=== PATIENT | female | born 1940 | race Caucasian/White ===

== ENCOUNTER 2024-07-11 13:05 | Observation (INO) | payer MEDICARE, SELFPAY ==
[2024-07-11] VITALS (15 sets, daily range): BP systolic 97–168; BP diastolic 44–105; PULSE 66–80; BMI 19.3
[2024-07-11 05:10] LABS: % Basophils 0.2 % (0-2); % Eosinophils 1.9 % (0-6); % Immature Granulocytes 0.3 % (0-0.5); % Lymphocytes 12.6 % (20.5-51.1); % Monocytes 7.4 % (1.7-9.3); % Neutrophils 77.6 % (42.2-75.2); Absolute Eosinophils 0.3 10^3/uL (0-0.7); Absolute Lymphocytes 1.8 10^3/uL (1.2-3.4); Absolute Neutrophils 10.9 10^3/uL (1.4-6.5); Hematocrit 36.6 % (37.0-47.0); Hemoglobin 12.1 g/dL (12.0-16.0); Mean Corp Hgb Conc. 33.1 g/dL (33.0-37.0); Mean Corpuscular Hgb 30.4 pg (27.0-31.0); Mean Platelet Volume 11.2 fL (7.4-10.4); Nucleated Red Blood Cells % 0 %; Platelet Count 245 10^3/uL (130-400); Red Blood Cell Count 3.98 10^6/uL (4.20-5.40); Red Cell Dist. Width 13.5 % (11.5-14.5)
[2024-07-11 05:43] LABS: ALT (SGPT) 18 U/L (0-35); AST (SGOT) 27 U/L (14-36); Albumin 3.8 g/dl (3.5-5.0); Alkaline Phosphatase 92 U/L (38-126); Blood Urea Nitrogen 27 mg/dl (7-17); Calcium 9.6 mg/dl (8.4-10.2); Carbon Dioxide 23 mmol/L (22-30); Chloride 108 mmol/L (98-107); Estimated Creatinine Clearance 31 ml/min; Glucose 107 mg/dl (70-99); Potassium 4.5 mmol/L (3.5-5.1); Sodium 141 mmol/L (135-145); Total Bilirubin 0.6 mg/dl (0.2-1.3); Total Protein 6.6 g/dl (6.3-8.2); eGFR 44.91
--- NOTE | 2024-07-11 06:19 | ED.GENMED ---
History of Present Illness
General
Chief Complaint: Fainting/Passed Out
Source: patient and family
Time Seen by Provider: 07/11/24 06:04
History of Present Illness
History of Present Illness:
84-year-old female with past medical history of mild Alzheimer's dementia, atrial fibrillation, GERD, [id number] diabetes presenting to the emergency department with son who contacted EMS after patient had 2 syncopal episodes reportedly,
1 witnessed, 1 unwitnessed between midnight and 4 AM, the last episode patient son reports that the patient was calling out to him and was sliding down a door frame, son notes that prior to him getting to her she did fall to the ground, believes
patient did strike her head and then had an episode where she seemed to clench up and briefly lose consciousness, questionably confused afterwards that lasted for only a minute or so and then was back to her usual state of health. Patient son notes
that this is the fifth time she has been to the hospital for similar type event with no specific etiology found. Son reports that patient was just discharged from [facility] yesterday but also has a recent admission for a prolonged stay and
recently at a rehab facility as well. Son reports the first time that this type of event happened patient was having vomiting and diarrhea but states patient normally has not spontaneously urinated nor had any tongue biting. There has not been any
fevers or other infectious symptoms noted. Discharge summary that son provided noted that patient was recently admitted for hypertensive episode and it appears patient had CTA of the head and neck as well as MRI performed but these results were not
known.
Past History
Past History
ED Past Medical History: Arrthythmia, GERD, NIDDM and Other (Alzheimer's dementia)
ED Past Surgical History: Appendectomy
Social History
Tobacco: Non-smoker
Alcohol: None
Drug: None
Personal:
Living: with family
Review of Systems
Review of Systems
All Other Systems: ROS reviewed and negative except as documented in HPI and ROS
Phy Exam
Physical Exam
Physical Exam:
GENERAL: Alert , in no apparent distress, appears older than stated age
HEAD: Normocephalic atraumatic
EYE: pupils equal and reactive, 3 mm bilateral
NECK: Supple
ENT: o/p clr, mmm.
CARDIAC: Regular rate and rhythm, systolic murmur down the left sternal border.
LUNGS: Clear breath sounds bilaterally, no acute respiratory distress, no wheezes/rales/rhonchi
ABDOMEN: Soft, without focal tenderness, no r/g, no cvat
NEUROLOGICAL: Alert and oriented, no focal neuro deficits, answers questions appropriately
SKIN: Warm and dry, skin intact.
MUSCULOSKELETAL: No edema, well perfused.
PSYCH: Normal and appropriate interaction.
Scores
Heart Failure Risk
Heart Failure Risk Score: Not Applicable
Heart Score for Chest Pain Patients
STEMI patient?: Not applicable
Withdrawal Assessment of Alcohol
Withdrawal Assessment Completed?: Not applicable
Course
Orders/Labs/Results
Orders:
Orders
07/11/24 04:53
EKG [Electrocardiogram (*1)] Urgent
Reason for Study: Syncope
EKG- Treatment ONCE
07/11/24 04:54
Complete Blood Count/With Diff Urgent
Comprehensive Metabolic Panel Urgent
Creatine Phosphokinase Urgent
Comment: ADD ON
07/11/24 05:[address] [CT Head W/o Iv Contrast] Urgent
Comment:
Reason For Exam: fall/syncope
07/11/24 06:08
Orthostatic VS- Treatment ONCE
0.9% Sodium Chloride 1000 ml [Nss] 1,000 ml IV BOLUS
07/11/24 06:18
Add On- LAB Urgent
Tests Added?: cpk
07/11/24 08:16
Straight Cath As Directed
Frequency: One time now
07/11/24 08:17
Urinalysis Reflex To Culture Urgent
Date Specimen was Collected: 07/11/24
Time Specimen was Collected: 08:15
07/11/24 12:16
Old Records Request [Obtain Records] As Directed
Dates of Information to be Released: last
Type of Information Requested: Discharge Summary
Lab Results
Radiology Results
Consults
Comment: last admission at [facility]
07/11/24 12:18
EEG Routine Routine
Reason for Exam: syncope
Orthostatic Vital Signs As Directed
Orthostatic VS Frequency: BID
Orthostatic Vital Signs As Directed
Orthostatic VS Frequency: Now
CR Chest - 2 Views Urgent
Comment:
Reason For Exam: leucocytosis
07/11/24 12:19
Admit/Transfer Patient As Directed
Co-Sign Provider:
Level of Care: Observation services
Assign to:: Telemetry
Physician / Group: Hospitalist
Diagnosis: Syncope
Reason for Telemetry: Other
Other Reason for Telemetry: Syncope
Date to Stop Telemetry: 07/13/24
Time to Stop Telemetry: 11:00
NEUROLOGY CONSULT Routine
Consulting Provider: Shanda Larry
Was physician already notified: Yes
Reason for consult: syncope
PRN Pain Medication Management As Directed
May give lesser potent ordered pain med per pt: Yes
preference::
Protocol:: Medication orders for pain may be administered in a
manner that supports deferring to patient preference
when the pt is:
- Requesting an ordered lesser potent pain medication.
Least to most potent pain medications are defined
as: acetaminophen < NSAID < tramadol < opioids
(morphine, oxycodone, hydromorphone).
- Requesting a lesser dose of the same medication IF
ORDERED.
- Requesting a less intrusive route of administration
if both routes are prescribed by the provider (PO <
IV).
07/11/24 12:30
Troponin I Q6H
07/11/24 18:30
Troponin I Q6H
07/13/24 11:00
DC Protocol for Telemetry ONCE
Abnormal Lab Results
07/11/24
04:54
WBC 14.0 H 10^3/uL
(4.8-10.8)
RBC 3.98 L 10^6/uL
(4.20-5.40)
Hct 36.6 L %
(37.0-47.0)
MPV 11.2 H fL
(7.4-10.4)
Absolute Neuts (auto) 10.9 H 10^3/uL
(1.4-6.5)
Absolute Monos (auto) 1.0 H 10^3/uL
(0.1-0.6)
Neutrophils % 77.6 H %
(42.2-75.2)
Lymphocytes % 12.6 L %
(20.5-51.1)
Chloride 108 H mmol/L
(98-107)
BUN 27 H mg/dl
(7-17)
Creatinine 1.2 H mg/dL
(0.6-1.0)
Glucose 107 H mg/dl
(70-99)
07/11/24 04:54
07/11/24 04:54
Vital Signs
Initial and Last Documented VS:
Initial Vital Signs
Temp Pulse Resp BP Pulse Ox
98.0 F 55 16 129/68 97
07/11/24 04:41 07/11/24 04:41 07/11/24 04:41 07/11/24 04:41 07/11/24 04:41
Last Documented Vital Signs
Temp Pulse Resp BP Pulse Ox
98.0 F 70 20 120/49 97
07/11/24 04:41 07/11/24 11:00 07/11/24 11:00 07/11/24 11:00 07/11/24 09:00
MDM/Problems Addressed
Differential Diagnosis Includes:
Vagal event, syncope, orthostasis, seizure, valvular dysfunction, cardiac arrhythmia/dysrhythmia, electrolyte derangement, urinary tract
MDM/Problems Addressed:
84-year-old female presenting to the ER for evaluation after reportedly having syncopal event versus possible seizure 2 times this morning, multiple similar episodes over the last few weeks that have landed patient in the hospital for further workup
but son reports no specific etiologies found. He does note patient had neuroimaging performed but is unaware of these results. Patient hemodynamically stable and in no acute distress, she is afebrile. Labs initiated on arrival do show a
leukocytosis of 14,000 as well as a mild JOSE R however no labs to compare to. Will check labs from [place] and attempt to obtain the imaging studies. Given the reported unwitnessed fall and patient being anticoagulated will reobtain CT of the head
here. Will treat with 1 L of fluids as well as check orthostatic vital signs. Disposition pending.
Chronic conditions affecting care: Neurological disorder (dementia)
*Radiology
Radiology exam reviewed: radiology read reviewed
*Pulse Oximetry
Patient hypoxic: no
*Critical Care Note
Total Time (30-74mins, 75-104mins- exclusive of procedures): Not Applicable
Data Reviewed
Review of Other/Old Records Reveals: Labs, Records, Radiology Studies and Discharge Summary
Patient Management
Discussion with other providers: Hospitalist
Escalation/DeEscalation of care consider admission/obs:
Patient's workup is largely unremarkable other than a leukocytosis and mild JOSE R. CT of the head is unremarkable. She has remained stable and in no acute distress. Given age and presenting symptoms will admit for further evaluation, question need
for EEG. Hospitalist team aware and accepts.
ED Attending Note
-
Portions of this chart may have been created with voice recognition software.� Occasional wrong word or��sound alike� substitutions may have occurred due to the inherent limitations of voice recognition software.
Discharge Plan
Departure
Patient Disposition: Admit
Date of Disposition: 07/11/24
Time of Disposition: 10:04
Presentation/result/management discussed w/ accepting MD/DO: Hospitalist
Discharge Problem:
Syncope, Leukocytosis
Prescriptions:
No Action
atorvastatin 40 mg Tablet
40 mg PO HS
cyanocobalamin (vitamin B-12) 1,000 mcg Tablet
1,000 mcg PO DAILY
benzonatate 100 mg Capsule
100 mg PO TIDPRN PRN (Reason: cough )
lisinopril 10 mg Tablet
10 mg PO DAILY
omeprazole 20 mg Capsule,Delayed Release(Dr/Ec)
20 mg PO DAILY
aspirin 81 mg Tablet,Chewable
81 mg PO DAILY
midodrine 2.5 mg Tablet
2.5 mg PO TIDPRN PRN (Reason: SBP<100)
cholecalciferol (vitamin D3) 25 mcg (1,000 unit) Capsule
25 mcg PO DAILY
metoprolol tartrate 25 mg Tablet
12.5 mg PO BID
diclofenac sodium [Voltaren] 1 % Gel
0 g TOPICAL QIDPRN PRN (Reason: joint pain )
magnesium oxide 400 mg magnesium Tablet
400 mg PO BID
simvastatin [Zocor] 20 mg Tablet
40 mg PO HS
Referrals:
Cliff Jackson DO [Family Provider] -
Interventions
Interventions:
*Risk Screen - Suicide Last Done: 07/11/24 04:41
*General Assessment Last Done: 07/11/24 04:41
*Neglect/Abuse Screening Last Done: 07/11/24 04:41
*ED- Fall Risk Assessment Last Done: 07/11/24 04:41
*ED COVID-19 Vaccine History Last Done: 07/11/24 05:24
ED- Cardiac Assessment Last Done: 07/11/24 05:25
ED- Neurological Assessment Last Done: 07/11/24 05:25
Discharge Date and Time
Print Language: BOTSWANAN
[2024-07-11] MEDS: NSS 1000 IV (06:38)
[2024-07-11 06:56] LABS: Creatine Phosphokinase 32 U/L (30-135)
[2024-07-11 08:30] LABS: Urine Albumin Negative (Neg - Trace); Urine Bilirubin Negative (Negative); Urine Character Clear (Clear); Urine Color Yellow; Urine Glucose Negative (Negative); Urine Ketone Negative (Negative); Urine Leukocyte Negative (Negative); Urine Nitrite Negative (Negative); Urine Occult Blood Negative (Negative); Urine Specific Gravity 1.005 (<1.030); Urine Urobilinogen Negative (Neg - 1+)
--- NOTE | 2024-07-11 10:43 | PHANOTE ---
med rec note- called patient son phone on file, patient does not know where she is or what Im trying to ask her about medication, patient son stated that she was in [facility] yesterday and discharge 07/10/24, son left paperwork with
patient, explain that patient on Zocor and Lipitor he said that the hospital told him to give her both and she took them last night on 07/10/24
--- NOTE | 2024-07-11 12:11 | HPS.HSE ---
Family Physician
-
Family Physician: Cliff Jackson
Chief Complaint
-
Passed out
History of Present Illness
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 Second 1 reported by the son patient was calling out to him and slid down the door frame patient did fall to the ground and had clenched up and briefly lost
consciousness she was confused for a minute afterwards
History per discussion with the ER. Patient is a very poor historian and also likely has dementia.
Report this is the fifth time similar event happened. Patient was at [facility] recently. First time it happened when she was having vomiting and diarrhea.
Medical History
Past Medical History
Past Medical History: Reports Other
Additional Past Medical History:
Dementia,, diabetes A-fib, GERD, diabetes, syncopes
Past Surgical History: Reports Appendectomy
Social History
Tobacco: Former Smoker
Alcohol: None
Drug: None
Living: With Family
Family History
Family History: Not pertinent
Allergies / Home Medications
Allergies reflects when Allergies were last updated in [employer].
Home Medications with original date entered in [employer]
Allergy/Medication List:
Allergies
Allergy/AdvReac Type Severity Reaction Status Date / Time
No Known Allergies Allergy Verified 07/11/24 04:54
Home Medications
aspirin 81 mg chewable tablet 81 mg PO DAILY 07/11/24
atorvastatin 40 mg tablet 40 mg PO HS 07/11/24
benzonatate 100 mg capsule 100 mg PO TIDPRN PRN cough 07/11/24
cholecalciferol (vitamin D3) 25 mcg (1,000 unit) capsule 25 mcg PO DAILY 07/11/24
cyanocobalamin (vitamin B-12) 1,000 mcg tablet 1,000 mcg PO DAILY 07/11/24
diclofenac sodium 1 % topical gel 0 g topical QIDPRN PRN joint pain 07/11/24
lisinopril 10 mg tablet 10 mg PO DAILY 07/11/24
magnesium oxide 400 mg PO BID 07/11/24
metoprolol tartrate 25 mg tablet 12.5 mg PO BID 07/11/24
midodrine 2.5 mg tablet 2.5 mg PO TIDPRN PRN SBP<100 07/11/24
omeprazole 20 mg capsule,delayed release 20 mg PO DAILY 07/11/24
simvastatin 20 mg tablet (Zocor) 40 mg PO HS 07/11/24
Review of Systems
-
History Source: Patient
Respiratory: Denies Trouble Breathing
Cardiac: Denies Chest Pain
Abdomen/GI: Denies Abdominal Pain
Neurological: Reports Dizzy; Denies Headache
Physical Exam
Vital Signs
Vital Signs
Temp Pulse Resp BP Pulse Ox
98.0 F 70 20 120/49 97
07/11/24 04:41 07/11/24 11:00 07/11/24 11:00 07/11/24 11:00 07/11/24 09:00
Physical Exam
General: Comfortable
Respiratory: Clear
Cardiac: S1/S2, Regular Rhythm and Murmur (aa)
GI: Soft and Normal Bowel Sounds
Neuro: Awake, Alert and No Motor Deficits; No Oriented
Psych: Apparent Dementia
Laboratory Results
-
07/11/24 04:54
07/11/24 04:54
Laboratory Results
Total Bilirubin 0.6 mg/dl (0.2-1.3) 07/11/24 04:54
AST 27 U/L (14-36) 07/11/24 04:54
ALT 18 U/L (0-35) 07/11/24 04:54
Alkaline Phosphatase 92 U/L (38-126) 07/11/24 04:54
Data Reviewed
-
CT Scan: Report Reviewed by me (Head CT-no acute abnormalities. Findings compatible with diffuse cortical atrophy with mild nonspecific white matter changes.)
Medical Tests (Nuc Med, Echo, EKG etc): Image Personally Visualized and interpreted (EKG-sinus rhythm anteroseptal infarct age undetermined)
Impression/Plan
-
IMPRESSION/PLAN:
# Syncope witnessed and 1 unwitnessed
Multiple syncopal events in the past
Workup at [facility] and was discharged yesterday. Looks like was admitted on 07/07/2024 and discharged on 07/10/2024 blood pressure was 222/88 on admission associated with headache and lethargy
Neurology evaluation was done no CVA
EEG ordered
Orthostatic vital signs
Unclear if patient has orthostatic hypotension patient also has midodrine in her med list
Check Trop
Also moderate to severe on ECHo- Will consult Cards if this could explain the Syncopes
# Leukocytosis-likely stress reaction. Urinalysis unremarkable. Chest x-ray to be ordered
# Acute kidney injury. Creatinine on 07/08/2024 was 0.80- 500 ml IV fluids
# Recent stroke-seen by Dr. Lorena Zepeda neurology at [facility]
Patient was admitted with left-sided weakness at that time to [facility] and also right facial droop?
07/08/2024 -MRI of the brain mild to moderate atrophy with at least mild small vessel disease. There is a probable small old left thalamic lacunar infarct. There is suggestion of tiny recent infarcts involving the right thalamus and mckenzie
radiator. No convincing left-sided acute infarct to explain right facial droop. Questionable diffusion abnormality in the midbrain to the right of the middle.
CT angiogram of head and neck atherosclerotic disease of the right common carotid and internal carotid arteries without significant stenosis. Atherosclerotic disease of the left common carotid without significant stenosis less than 50%. Bilateral
ELIEZER, MCA, TAPER/FINISHER normal in appearance. Age-related atrophy.
Neurology at [facility] did not feel the changes were secondary to stroke.Recommended to continue aspirin and statin
# Hypertension-on metoprolol, lisinopril as outpatient
# Hyperlipidemia-continue statin
# Aortic stenosis-follows up with administrative services officer of [place]
Echo normal LV size. Normal RV size. Severe aortic stenosis transaortic valve gradient 34 mmHg LVOT 1.8 cm. No AI.
Patient has an appointment with cardiology at [place] on 09/11/2024
# Type 2 diabetes-diet controlled. Not on any medicines. Hemoglobin A1c 5.7 in 07/08/2024
# Paroxysmal atrial fibrillation-continue metoprolol. Not on anticoagulation secondary to falls
# Vitamin B12 deficiency
# GERD-continue PPI
# DVT Prophylaxis- Lovenox
# CODE Status-full code for now
D/W ER attending
I was not able to reach the patient's son left a message for call back..
Op Chart records from [facility] ayan.
PCP Dr. Cliff Jackson
time spent over 75 min
--- NOTE | 2024-07-11 15:06 | CON.CAR ---
Addendum entered and electronically signed by Alex Sy MD 07/11/24 17:09:
I saw and examined the patient.
The Systems Technologist's note was reviewed and I agree with the note.
Comment: Briefly, 84-year-old woman past medical history of moderate to severe aortic stenosis, paroxysmal atrial fibrillation not chronically anticoagulated and dementia who has had multiple syncopal episodes over the last several months and
presents for evaluation.
Patient largely obtained from her son Tommy who is at bedside
It seems that she has had multiple syncopal episodes over the last several months and has been hospitalized at [facility] each time
Difficult to obtain history of prodromal symptoms as the patient tells me she does not recall any of these episodes
By his report her blood pressure has been quite labile and her antihypertensives have been changed over the last several months without much improvement in her symptoms
Given her aortic stenosis would recommend stopping beta-lida for now
If she has recurrence of atrial fibrillation would consider amiodarone to maintain sinus rhythm
Check transthoracic echocardiogram in a.m. to evaluate aortic valve gradients - it is very possible that aortic stenosis is contributing to her symptoms
He gives a history of staring spells around the time of these episodes
Appreciate neurology input regarding possible seizure activity
Documented history of atrial fibrillation but not on oral anticoagulation likely due to frequent falls
I reviewed with him that she is at both elevated risk of stroke as well as bleeding on anticoagulation
Rest per Amy Eaton
Original Note:
Consultation
Consultation Request
Date/Time Consultation Requested: 07/11/24
Date/Time Consultation Performed: 07/11/24
Requesting Provider: Dr. Santo
Performing Provider: Dr. Sy
Reason for Consultation: Syncope
Medical History
-
History of Present Illness:
Patient came to [facility] ER early this morning with recurrent syncope at home. Patient lives with her son, but was living independently in [place] until 07/2023 when the patient's PCP in [place] called her son and told him that she was too demented to be
living on her own and recommended that she move closer to family. The patient has been living with her son since 07/2023. Patient's son gives the bulk of the HPI and reports that the patient has been hospitalized at [facility] 4 times since
03/2024 for recurrent syncope. The initial episode of syncope in 03/2024 happened in the setting of nausea, vomiting and diarrhea. Patient was admitted there again this past Monday to yesterday with syncope and had an echo as outlined above.
Patient's son reports that patient was found to have a new area of stroke in the left hemisphere this is in addition to a previously identified right hemispheric stroke. Patient has known paroxysmal atrial fibrillation but is not chronically on OAC
due to history of falls. Patient's son says that otherwise they were not sure why the patient kept passing out. Patient is back to living with her son and she woke up in the night to go to the bathroom and was able to go back to bed without issue,
but got up again 2 hours later to go to the bathroom and called for help and said she fell like she was going to pass out and was leaned up against a door jam and slowly falling to the ground. She then had her typical episode of eyes open with a
blank stare, whole body clenching without evidence of seizure activity and unresponsiveness. Patient was on the ground and was trying to sit up and had another episode of syncope. No recurrence of syncope since admission. Patient was seen by CCP
[facility] during her admission, with the patient's son arranged for outpatient follow-up with our office.
PMH:
h/o syncope, 4 admissions to [facility] since 03/2024
Moderate to sev , mean gradient 34 mmHg by echo 07/08/24
Paroxysmal Afib
Not chronically anticoagulated due to h/o falls
DM 2
HTN
h/o CVA
Past Medical History
Past Medical History: Other (in HPI)
Past Surgical History: Appendectomy
Social History
Tobacco: Former Smoker
Alcohol: None
Drug: None
Personal:
Living: With Family
Family History
Family History: Reviewed & Not Pertinent
Allergies / Home Medications
Allergy/AdvReac Type Severity Reaction Status Date / Time
No Known Allergies Allergy Verified 07/11/24 04:54
�Medication �Instructions �Recorded �Confirmed �Type
aspirin 81 mg chewable tablet 81 mg PO DAILY 07/11/24 07/11/24 History
atorvastatin 40 mg tablet 40 mg PO HS 07/11/24 07/11/24 History
benzonatate 100 mg capsule 100 mg PO TIDPRN PRN cough 07/11/24 07/11/24 History
cholecalciferol (vitamin D3) 25 25 mcg PO DAILY 07/11/24 07/11/24 History
mcg (1,000 unit) capsule
cyanocobalamin (vitamin B-12) 1,000 mcg PO DAILY 07/11/24 07/11/24 History
1,000 mcg tablet
diclofenac sodium 1 % topical gel 0 g topical QIDPRN PRN joint pain 07/11/24 07/11/24 History
lisinopril 10 mg tablet 10 mg PO DAILY 07/11/24 07/11/24 History
magnesium oxide 400 mg PO BID 07/11/24 07/11/24 History
metoprolol tartrate 25 mg tablet 12.5 mg PO BID 07/11/24 07/11/24 History
midodrine 2.5 mg tablet 2.5 mg PO TIDPRN PRN SBP<100 07/11/24 07/11/24 History
omeprazole 20 mg capsule,delayed 20 mg PO DAILY 07/11/24 07/11/24 History
release
simvastatin 20 mg tablet (Zocor) 40 mg PO HS 07/11/24 07/11/24 History
Review of Systems
-
History Source: Patient and Family (son, [place])
All other systems: Negative unless noted
Physical Exam
Vital Signs
Temp Pulse Resp BP Pulse Ox
98.0 F 70 20 120/49 97
07/11/24 04:41 07/11/24 11:00 07/11/24 11:00 07/11/24 11:00 07/11/24 09:00
GEN: NAD. Awake and alert
HEENT: EOMI, MMM
LUNGS: RA. Clear anterolaterally without wheeze
CV: SR on tele. Reg, S1/S2, 2/6 syst LSB
ABD: soft, BS+, NT, ND
EXT: No clubbing, cyanosis, lesions or edema B/L
NEURO: Gross non-focal
SKIN: Warm, dry and pink. No rash
Lab Results
07/11/24 04:54
07/11/24 04:54
Impression / Plan
-
PCP: Dr. Cliff Jackson
Card: [facility], but upcoming appt with Dr. Rossi
Impression:
Admitted with recurrent syncope 07/11/24
h/o syncope, 4 admissions to [facility] since 03/2024
Moderate to sev , mean gradient 34 mmHg by echo 07/08/24
Paroxysmal Afib
Not chronically anticoagulated due to h/o falls
DM 2
HTN
JOSE R
h/o CVA
Echo 07/08/24: [facility] study, f/u study, normal LVEF, normal RV size, mod to sev mean gradient 34 mmHg
Plan:
-Patient came to [facility] ER early this morning with recurrent syncope at home. Patient lives with her son, but was living independently in [place] until 07/2023 when the patient's PCP in [place] called her son and told him that she was too demented to
be living on her own and recommended that she move closer to family. The patient has been living with her son since 07/2023. Patient's son gives the bulk of the HPI and reports that the patient has been hospitalized at [facility] 4 times
since 03/2024 for recurrent syncope. The initial episode of syncope in 03/2024 happened in the setting of nausea, vomiting and diarrhea. Patient was admitted there again this past Monday to yesterday with syncope and had an echo as outlined above.
Patient's son reports that patient was found to have a new area of stroke in the left hemisphere this is in addition to a previously identified right hemispheric stroke. Patient has known paroxysmal atrial fibrillation but is not chronically on OAC
due to history of falls. Patient's son says that otherwise they were not sure why the patient kept passing out. Patient is back to living with her son and she woke up in the night to go to the bathroom and was able to go back to bed without issue,
but got up again 2 hours later to go to the bathroom and called for help and said she fell like she was going to pass out and was leaned up against a door jam and slowly falling to the ground. She then had her typical episode of eyes open with a
blank stare, whole body clenching without evidence of seizure activity and unresponsiveness. Patient was on the ground and was trying to sit up and had another episode of syncope. No recurrence of syncope since admission. Patient was seen by [facility] during her admission, with the patient's son arranged for outpatient follow-up with our office.
-ECG reviewed by me is SR and QTc is 422 ms
-Orthostatic vital signs performed in the ER this morning include: Supine BP 147/52, sitting BP 131/44 and standing BP 97/52. No symptoms recorded with orthostatic vital signs.
-Patient is supposed to take midodrine 2.5 mg TID for SBP less than 100 at home, but she is not capable of checking BP on her own so she has not been taking any doses of midodrine.
-Patient has been taking her usual doses of Lopressor 12.5 mg BID and lisinopril 10 mg daily. It sounds like lisinopril dose was changed at that last discharge which was yesterday, but I do not know if they went up on the dose or down on the dose,
the notes are not clear.
-We will try stopping Lopressor for now and follow on tele.
-Check echo to reassess AV gradients and EF. Sounds like at least moderate to severe .
-Not sure that patient is a TAVR candidate based on cognition, but did review TAVR work-up with son and risks involved. Also reviewed that at any point in the TAVR work that the patient may be deemed to not be a candidate.
-Patient also with history of paroxysmal atrial fibrillation, but has been in sinus rhythm. Will follow on telemetry and look for any rate or rhythm changes that may explain her symptoms.
-Patient is not chronically on OAC due to falls.
-Neurology consulted and sounds like neuro at [facility] identified bihemispheric strokes.
-Also of note the patient was discharged to home from [facility] on both simvastatin and atorvastatin as active medications
-Cre was 1.2 in the ER today on my review of labs. The [facility] records reviewed by me as well and Cre was 1.0 on Monday. Lisinopril is on hold
[2024-07-11] MEDS: NSS 500 IV (15:40)
[2024-07-11] MEDS: TYLENOL PO ×3 (15:41→23:22)
--- NOTE | 2024-07-11 16:58 | EEGC.RPT ---
Continuous EEG Report
Recording
Start Date of Data Reviewed: 07/11/24
End Date of Data Reviewed: 07/11/24
Done with Video Recording: Yes
Report
TECHNICAL REMARKS:��This is a technically satisfactory eighteen channel record employing 21 disc electrodes applied according to a measured international 10-20 electrode placement system.��There were no significant technical difficulties.��The study
was done on a [employer] System.
CLINICAL HISTORY:�This is an 81-year-old woman with syncope.��This study was requested to look for epileptiform activity.
MEDICATIONS: No AED
STUDY DURATION: 31 min, 11 sec
�
REPORT: �At the onset of the EEG, the patient is awake. The background activity consists of 8.5-9.o Hz, persistent, posteriorly dominant, moderate in amplitude, symmetric, and rhythmic activity that is reactive to eye-opening with admixed 10-15
microvolts delta activity.� Anteriorly, it consists of a mixture of symmetric and rhythmic 5-10 microvolts, 15-20 beta activity, as well as central 6-7 Hz 10-20 microvolts theta activity. Intermittent generalized 5-6 Hz 10-20 microvolts activity
lasting for 1-1.5 seconds during wakefulness is present. Stepwise intermittent photic stimulation (1-31 Hz) did not induce any additional abnormalities. Hyperventilation was not performed. drowsiness is characterized by low amplitude mixed
frequency activity, decreased eye blinking, and muscle artifact.
IMPRESSION: �This is an abnormal awake and drowsy EEG due to a mild generalized slowing. This finding indicates a mild encephalopathy that is not specific to etiology.� No epileptiform activity was seen.� If the clinical picture warrants, a
sleep-deprived awake and sleep record may be helpful.
--- NOTE | 2024-07-11 17:03 | CON.NEURO ---
Consultation
Order
Date of Consultation: 07/11/24
Requesting Provider: Sylvie Sanot MD
Reason for Consult: Syncope
Neurology Consultation Note.
HPI: This is an 84-year-old woman who presented to [facility] on with recurrent spells.
Mobile reports no complaints. She is unable to provide a history. According to EMR she was witnessed by her son to be leaning up against a door and slowly falling to the ground on the day of presentation. She had blank stare and whole body
'clenching'. No reports of abnormal movements.
Ms. Weeks reportedly has history of dementia as well as stroke. She is unable to recall what hospital she had her stroke care at.
ER VS: 129/68-97/52, 55, afebrile.
EKG:NSR. QTc Int : 422 ms
PDMP:none
Labs: Glucose�107, normal sodium, creatinine�1.2, WBCs�14, normal CK, normal urinalysis
CT head wo contrast-diffuse cortical atrophy
Routine EEG ()�mild generalized slowing
PMH: Orthostatic hypotension on midodrine, dementia, PA A-Fib on aspirin due to postural dysfunction, vitamin D deficiency, moderate to sev , vitamin D deficiency, macular degeneration
PSH: appendectomy, bilateral cataract surgery
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
FH: No family history of neurodegenerative disease
All:NKDA
ROS: Constitutional: Negative. Negative for chills, fever and unexpected weight change.
HENT: Negative for ear pain, hearing loss, tinnitus and trouble swallowing.
Eyes: Positive for visual impairment
Respiratory: Negative for cough, choking and shortness of breath.
Cardiovascular: Negative for chest pain, palpitations and leg swelling.
Gastrointestinal: Negative for abdominal pain and vomiting.
Endocrine: Negative. Negative for cold intolerance.
Genitourinary: Negative for dysuria, flank pain and urgency.
Musculoskeletal: Negative for back pain, gait problem, neck pain and neck stiffness.
Skin: Negative for rash.
Allergic/Immunologic: Negative. Negative for immunocompromised state.
Neurological: Positive for cognitive deficits
General: Well developed. In no acute distress.
Cardio: Regular rate and rhythm Extremities are without cyanosis or edema.
Neuro:
Mental Status: Alert, oriented to self, year. Did not know the month, date. Mild expressive aphasia. Follows simple requests consistently.
Cranial Nerves: Pupils are equally round, surgical. EOMs full. BTT BL. No ptosis. No nystagmus. V1-V3 intact to light touch and pinprick bilaterally, symmetric. Face symmetric. Mildly hearing AU. The palate elevated well. SCMs and traps
5/5. Tongue midline. No dysarthria.
Motor: Normal bulk and tone. No pronator or arm drift. Strength 5/5 throughout. No clonus.
Reflexes: Mild grasp.
Sensory: Reduced vibration at the toes
Coordination: No dysmetria or tremor.
Gait: deferred
Assessment and Plan:
I. Recurrent spells. Vascular versus epileptic.
II. Chronic encephalopathy
III. History of stroke, paroxysmal A-fib on AC
IV. Ambulatory dysfunction
- Fall precautions
- Please obtain orthostatic vital sign
- Continue ASA 81 mg QD
- Please obtain medical records from patient's PCP
- Will contact patient's son to obtain collateral history
- DVT prophylaxis.
I personally reviewed all radiology and labs along with past medical records pertinent to current medical problems. Total time spent in patient care is 60 minutes.
Thank you for allowing us to participate in the care of this patient. We will continue to follow. Please do not hesitate to contact us with any questions or concerns.
Subjective/Objective
Subjective Data
Date of Service: July 11, 2024
Objective Data
Vital Signs
Temp Pulse Resp BP Pulse Ox
36.4 C 72 18 147/105 99
07/11/24 16:17 07/11/24 16:17 07/11/24 16:17 07/11/24 16:17 07/11/24 16:17
Lab Results
07/11/24 04:54
07/11/24 04:54
Sodium 141 mmol/L (135-145) 07/11/24 04:54
Potassium 4.5 mmol/L (3.5-5.1) 07/11/24 04:54
BUN 27 mg/dl (7-17) H 07/11/24 04:54
Glucose 107 mg/dl (70-99) H 07/11/24 04:54
Calcium 9.6 mg/dl (8.4-10.2) 07/11/24 04:54
Patient Allergies
No Known Allergies Allergy (Verified 07/11/24 04:54)
Medications
-
Active Medications
Generic Name Dose Route Start Last Admin
Trade Name Freq PRN Reason Stop Dose Admin
Acetaminophen 650 mg 07/11/24 16:00 07/11/24 15:41
Acetaminophen 325 Mg Tablet PO 08/08/24 15:59 Not Given
Q4HWA YOVANY
Aspirin 81 mg 07/12/24 08:00
Aspirin 81 Mg Chewable Tablet PO 08/09/24 07:59
DAILY YOVANY
Atorvastatin Calcium 40 mg 07/11/24 22:00
Atorvastatin (Lipitor) 40 Mg Tablet PO 08/08/24 21:59
HS YOVANY
Benzonatate 100 mg 07/11/24 13:29
Benzonatate 100 Mg Capsule PO 08/08/24 13:28
TIDPRN PRN
cough
Bisacodyl 10 mg 07/11/24 13:29
Bisacodyl 10 Mg Rectal Suppository RECTAL 08/08/24 13:28
[id number] PRN
constipation
Cholecalciferol 25 mcg 07/12/24 08:00
Cholecalciferol (Vitamin D3) 25 Mcg Tablet (1,000 Units) PO 08/09/24 07:59
DAILY YOVANY
Cyanocobalamin 1,000 mcg 07/12/24 08:00
Cyanocobalamin 1,000 Mcg Tablet PO 08/09/24 07:59
DAILY YOVANY
Enoxaparin Sodium 40 mg 07/11/24 18:00
Enoxaparin Sodium 40 Mg/0.4 Ml Syringe SC 08/08/24 17:59
QPM YOVANY
Sodium Chloride 500 mls @ 80 mls/hr 07/11/24 13:29 07/11/24 15:40
Nss IV 07/11/24 19:43 500 mls
.Q6H15M YOVANY Administration
Magnesium 84 mg 07/11/24 20:00
Magnesium Lactate 84 Mg Tablet PO 08/08/24 19:59
BID YOVANY
Metoprolol Tartrate 12.5 mg 07/11/24 20:00
Metoprolol 12.5 Mg Regular Release Dose (1/2 Of 25 Mg Tablet) PO 08/08/24 19:59
BID YOVANY
Midodrine 2.5 mg 07/11/24 13:29
Midodrine 2.5 Mg Tablet PO
TIDPRN PRN
SBP<100
Pantoprazole Sodium 40 mg 07/12/24 08:00
Pantoprazole 40 Mg Delayed Release Tablet PO 08/09/24 07:59
DAILY YOVANY
Polyethylene Glycol 17 grams 07/11/24 13:29
Polyethylene Glycol Powder 17 Grams Packet PO 08/08/24 13:28
DAILYPRN PRN
constipation
Polyethylene Glycol 17 grams 07/12/24 08:00
Polyethylene Glycol Powder 17 Grams Packet PO 08/09/24 07:59
DAILY YOVANY
Senna/Docusate Sodium 1 tablet 07/11/24 13:29
Docusate W/Senna (Latricia-Colace) Tablet PO 08/08/24 13:28
BIDPRN PRN
constipation
Sodium Chloride 0 flush 07/11/24 15:00
Sodium Chloride 0.9% (Flush) Syringe IV 08/08/24 14:59
PER PROTOCOL YOVANY
Home Medications
�Medication �Instructions �Recorded
aspirin 81 mg chewable tablet 81 mg PO DAILY 07/11/24
atorvastatin 40 mg tablet 40 mg PO HS 07/11/24
benzonatate 100 mg capsule 100 mg PO TIDPRN PRN cough 07/11/24
cholecalciferol (vitamin D3) 25 25 mcg PO DAILY 07/11/24
mcg (1,000 unit) capsule
cyanocobalamin (vitamin B-12) 1,000 mcg PO DAILY 07/11/24
1,000 mcg tablet
diclofenac sodium 1 % topical gel 0 g topical QIDPRN PRN joint pain 07/11/24
lisinopril 10 mg tablet 10 mg PO DAILY 07/11/24
magnesium oxide 400 mg PO BID 07/11/24
metoprolol tartrate 25 mg tablet 12.5 mg PO BID 07/11/24
midodrine 2.5 mg tablet 2.5 mg PO TIDPRN PRN SBP<100 07/11/24
omeprazole 20 mg capsule,delayed 20 mg PO DAILY 07/11/24
release
simvastatin 20 mg tablet (Zocor) 40 mg PO HS 07/11/24
Vital Signs and Labs
-
Vital Signs and Labs:
Vital Signs
Temp Pulse Resp BP Pulse Ox
36.4 C 72 18 147/105 99
07/11/24 16:17 07/11/24 16:17 07/11/24 16:17 07/11/24 16:17 07/11/24 16:17
Lab Results
07/11/24 04:54
07/11/24 04:54
Sodium 141 mmol/L (135-145) 07/11/24 04:54
Potassium 4.5 mmol/L (3.5-5.1) 07/11/24 04:54
BUN 27 mg/dl (7-17) H 07/11/24 04:54
Glucose 107 mg/dl (70-99) H 07/11/24 04:54
Calcium 9.6 mg/dl (8.4-10.2) 07/11/24 04:54
Medications
-
Medications:
Generic Name Dose Route Start Last Admin
Trade Name Freq PRN Reason Stop Dose Admin
Acetaminophen 650 mg 07/11/24 16:00 07/11/24 15:41
Acetaminophen 325 Mg Tablet PO 08/08/24 15:59 Not Given
Q4HWA YOVANY
Aspirin 81 mg 07/12/24 08:00
Aspirin 81 Mg Chewable Tablet PO 08/09/24 07:59
DAILY YOVANY
Atorvastatin Calcium 40 mg 07/11/24 22:00
Atorvastatin (Lipitor) 40 Mg Tablet PO 08/08/24 21:59
HS YOVANY
Benzonatate 100 mg 07/11/24 13:29
Benzonatate 100 Mg Capsule PO 08/08/24 13:28
TIDPRN PRN
cough
Bisacodyl 10 mg 07/11/24 13:29
Bisacodyl 10 Mg Rectal Suppository RECTAL 08/08/24 13:28
[id number] PRN
constipation
Cholecalciferol 25 mcg 07/12/24 08:00
Cholecalciferol (Vitamin D3) 25 Mcg Tablet (1,000 Units) PO 08/09/24 07:59
DAILY YOVANY
Cyanocobalamin 1,000 mcg 07/12/24 08:00
Cyanocobalamin 1,000 Mcg Tablet PO 08/09/24 07:59
DAILY YOVANY
Enoxaparin Sodium 40 mg 07/11/24 18:00
Enoxaparin Sodium 40 Mg/0.4 Ml Syringe SC 08/08/24 17:59
QPM YOVANY
Sodium Chloride 500 mls @ 80 mls/hr 07/11/24 13:29 07/11/24 15:40
Nss IV 07/11/24 19:43 500 mls
.Q6H15M YOVANY Administration
Magnesium 84 mg 07/11/24 20:00
Magnesium Lactate 84 Mg Tablet PO 08/08/24 19:59
BID YOVANY
Midodrine 2.5 mg 07/11/24 13:29
Midodrine 2.5 Mg Tablet PO
TIDPRN PRN
SBP<100
Pantoprazole Sodium 40 mg 07/12/24 08:00
Pantoprazole 40 Mg Delayed Release Tablet PO 08/09/24 07:59
DAILY YOVANY
Polyethylene Glycol 17 grams 07/11/24 13:29
Polyethylene Glycol Powder 17 Grams Packet PO 08/08/24 13:28
DAILYPRN PRN
constipation
Polyethylene Glycol 17 grams 07/12/24 08:00
Polyethylene Glycol Powder 17 Grams Packet PO 08/09/24 07:59
DAILY YOVANY
Senna/Docusate Sodium 1 tablet 07/11/24 13:29
Docusate W/Senna (Latricia-Colace) Tablet PO 08/08/24 13:28
BIDPRN PRN
constipation
Sodium Chloride 0 flush 07/11/24 15:00
Sodium Chloride 0.9% (Flush) Syringe IV 08/08/24 14:59
PER PROTOCOL YOVANY
Home Medications
-
Home Medications
aspirin 81 mg chewable tablet 81 mg PO DAILY 07/11/24
atorvastatin 40 mg tablet 40 mg PO HS 07/11/24
benzonatate 100 mg capsule 100 mg PO TIDPRN PRN cough 07/11/24
cholecalciferol (vitamin D3) 25 mcg (1,000 unit) capsule 25 mcg PO DAILY 07/11/24
cyanocobalamin (vitamin B-12) 1,000 mcg tablet 1,000 mcg PO DAILY 07/11/24
diclofenac sodium 1 % topical gel 0 g topical QIDPRN PRN joint pain 07/11/24
lisinopril 10 mg tablet 10 mg PO DAILY 07/11/24
magnesium oxide 400 mg PO BID 07/11/24
metoprolol tartrate 25 mg tablet 12.5 mg PO BID 07/11/24
midodrine 2.5 mg tablet 2.5 mg PO TIDPRN PRN SBP<100 07/11/24
omeprazole 20 mg capsule,delayed release 20 mg PO DAILY 07/11/24
simvastatin 20 mg tablet (Zocor) 40 mg PO HS 07/11/24
[2024-07-11] MEDS: LOVENOX 40 MG SC (17:46)
[2024-07-11 19:00] LABS: Troponin I < 0.012 ng/ml
[2024-07-11] MEDS: LIPITOR 40 MG PO (21:47)
[2024-07-11] MEDS: MAG-TAB SR 84 MG PO (21:47)
[2024-07-12] VITALS (9 sets, daily range): BP systolic 143–176; BP diastolic 59–69; PULSE 64–73; BMI 19.4
[2024-07-12] MEDS: TYLENOL PO ×3 (03:56→22:52)
[2024-07-12 05:55] LABS: % Basophils 0.3 % (0-2); % Eosinophils 3.1 % (0-6); % Immature Granulocytes 0.2 % (0-0.5); % Lymphocytes 29.9 % (20.5-51.1); % Neutrophils 59.5 % (42.2-75.2); Absolute Eosinophils 0.2 10^3/uL (0-0.7); Absolute Lymphocytes 1.9 10^3/uL (1.2-3.4); Absolute Monocytes 0.5 10^3/uL (0.1-0.6); Absolute Neutrophils 3.8 10^3/uL (1.4-6.5); Hemoglobin 10.3 g/dL (12.0-16.0); Mean Corp Hgb Conc. 33.2 g/dL (33.0-37.0); Mean Corpuscular Hgb 30.2 pg (27.0-31.0); Mean Corpuscular Volume 90.9 fL (81.0-99.0); Mean Platelet Volume 10.6 fL (7.4-10.4); Nucleated Red Blood Cells % 0 %; Platelet Count 219 10^3/uL (130-400); Red Blood Cell Count 3.41 10^6/uL (4.20-5.40); Red Cell Dist. Width 13.7 % (11.5-14.5); White Blood Cell Count 6.4 10^3/uL (4.8-10.8)
[2024-07-12 06:31] LABS: Blood Urea Nitrogen 19 mg/dl (7-17); Calcium 9.1 mg/dl (8.4-10.2); Carbon Dioxide 25 mmol/L (22-30); Chloride 109 mmol/L (98-107); Estimated Creatinine Clearance 40 ml/min; Glucose 82 mg/dl (70-99); Magnesium 1.6 mg/dl (1.6-2.3); Potassium 4.2 mmol/L (3.5-5.1); Sodium 141 mmol/L (135-145); eGFR > 60.00
[2024-07-12 07:01] LABS: TSH 1.52 uIU/ml (0.47-4.68)
[2024-07-12 07:20] LABS: Vitamin B12 973 pg/ml (239-931)
[2024-07-12] MEDS: PROTONIX 40 MG PO (09:11)
[2024-07-12] MEDS: VITAMIN B-12 1000 MCG PO (09:11)
[2024-07-12] MEDS: TYLENOL 650 MG PO ×3 (09:11→19:55)
[2024-07-12] MEDS: MAG-TAB SR 84 MG PO ×2 (09:11→19:57)
[2024-07-12] MEDS: VITAMIN D3 (cholecalciferol) 25 MCG PO (09:11)
[2024-07-12] MEDS: MIRALAX 17 GRAMS PO (09:12)
[2024-07-12] MEDS: LOW STRENGTH ASPIRIN 81 MG PO (09:12)
--- NOTE | 2024-07-12 15:36 | W.PN.HOSP.TC ---
Addendum entered and electronically signed by Sylvie Santo MD 07/12/24 16:54:
Dictation- [id number]
Original Note:
Today's Communication/Plan
-
Son has difficulty taking her home tonight
discharge in am
Assessment / Plan
Assessment / Plan
84-year-old came in with syncope 2 episodes 1 witnessed and 1 unwitnessed cone marker. Second 1 reported by the son patient was calling out to him and slid down the door frame patient did fall to the ground and had clenched up and briefly lost
consciousness she was confused for a minute afterwards
07/12/2024-echo normal LV size, EF 60%. Diastolic function indeterminate. Thickened mitral valve. Trace MR. Calcified arctic valve moderate to severe . Peak gradient 59 x 34 mmHg and valve area 0.8 cm�. Mild to moderate AI
EEG-07/11/2024-mild encephalopathy no epileptiform activity
# Syncope witnessed and 1 unwitnessed
Multiple syncopal events in the past
Workup at [facility] and was discharged 07/10/2024. Looks like was admitted on 07/07/2024 and discharged on 07/10/2024 blood pressure was 222/88 on admission associated with headache and lethargy
Neurology evaluation was done no CVA
EEG without any seizures
Orthostatic hypotension in the ER but none now.
Possibly secondary to dehydration
Trop Neg
Possibly these are related to aortic stenosis. Cardiology consulted and evaluated the patient
Not sure if pt will be a candidate for TAVR given Dementia
# Leukocytosis-likely stress reaction. Urinalysis unremarkable. Chest x-ray unremarkable
# Acute kidney injury. Creatinine on 07/08/2024 was 0.80- 500 ml IV fluids were given and creat normalised.
# Recent stroke-seen by Dr. Lorena Zepeda neurology at [facility]
Patient was admitted with left-sided weakness at that time to [facility] and also right facial droop?
07/08/2024 -MRI of the brain mild to moderate atrophy with at least mild small vessel disease. There is a probable small old left thalamic lacunar infarct. There is suggestion of tiny recent infarcts involving the right thalamus and mckenzie
radiator. No convincing left-sided acute infarct to explain right facial droop. Questionable diffusion abnormality in the midbrain to the right of the middle.
CT angiogram of head and neck atherosclerotic disease of the right common carotid and internal carotid arteries without significant stenosis. Atherosclerotic disease of the left common carotid without significant stenosis less than 50%. Bilateral
ELIEZER, MCA, FURNACE COMBUSTION ANALYST normal in appearance. Age-related atrophy.
Neurology at [facility] did not feel the changes were secondary to stroke.Recommended to continue aspirin and statin
# Aortic stenosis-follows up with non profit financial controller of [place]
Echo normal LV size. Normal RV size. Severe aortic stenosis transaortic valve gradient 34 mmHg LVOT 1.8 cm. No AI.
DCA consulted
# Hypertension-on metoprolol, lisinopril as outpatient. Both stopped as she was orthostatic in the ER.
# Hyperlipidemia-continue statin
# Type 2 diabetes-diet controlled. Not on any medicines. Hemoglobin A1c 5.7 in 07/08/2024
# Paroxysmal atrial fibrillation-metoprolol stopped. Not on anticoagulation secondary to falls
# Vitamin B12 deficiency
# GERD-continue PPI
# Dementia
# DVT Prophylaxis- Lovenox
# CODE Status-DNR per D/W Son
D/W RN
D/W Cardiology
Anticipated Discharge: Within 24 hours
Subjective/Interval History
-
Date of Service: July 12, 2024
Objective Data
-
Labs:
Laboratory Results
07/12/24
05:37
WBC 6.4
Hgb 10.3 L
Hct 31.0 L
Plt Count 219
Sodium 141
Potassium 4.2
Chloride 109 H
Carbon Dioxide 25
BUN 19 H
Creatinine 0.9
Glucose 82
Calcium 9.1
Vital Signs:
Vital Signs
Temp Pulse Resp BP Pulse Ox
97.3 F 64 14 157/59 100
07/12/24 15:35 07/12/24 15:35 07/12/24 15:35 07/12/24 15:35 07/12/24 15:35
I&O
07/11/24 07/12/24 07/13/24
06:59 06:59 06:59
Intake Total 240 / 240
Balance 240 / 240
--- NOTE | 2024-07-12 15:45 | W.PN.CARDCBS ---
Today's Communication / Plan
-
Very difficult treatment dilemma
Will presume this was due to orthostasis given history I cannot exclude aortic stenosis as a cause
Orthostasis has resolved today and will continue to hold lisinopril and Lopressor
They will follow blood pressure at home and may need to restart 1 of those meds but might benefit from running a little higher blood pressure at baseline to give a buffer with orthostasis
Will check monitor by satellite initially placed today
Son wishes patient to stay till 07/13
Discussed with primary service
Total visit time 55 minutes occluding more than half of time spent explaining diagnosis, prognosis, and treatment options with patient and son and primary service
Impression / Plan
-
PCP: Dr. Cliff Jackson
Card: [facility], but upcoming appt with Dr. Rossi
Impression:
Admitted with recurrent syncope 07/11/24
h/o syncope, 4 admissions to [facility] since 03/2024
Moderate to sev , mean gradient 34 mmHg by echo 07/08/24
Paroxysmal Afib
Not chronically anticoagulated due to h/o falls
DM 2
HTN
h/o CVA
Echo 07/08/24: [facility] study, f/u study, normal LVEF, normal RV size, mod to sev mean gradient 34 mmHg
Plan:
She has a very difficult treatment dilemma.
Her episodes appear to be due to orthostasis as she is pale afterwards and had orthostasis during admission
Unfortunately she has hypertension as well and was supposed to be taking midodrine as needed but unable to check her blood pressure at home
Cannot exclude aortic stenosis as the cause of syncope but usually that is much more sudden with trauma noted etc.
Not sure that patient is a TAVR candidate based on cognition but this could be reconsidered as an outpatient if syncope continues
Her blood pressure is on the higher side here and may need a buffer with orthostasis so might be better if she runs on the higher side
Will hold Lopressor and lisinopril for now and reassess as an outpatient
And will follow-up blood pressure at home.
She will get a rhythm*monitor to monitor by satellite but there have been no arrhythmias since admission.
She remains in sinus rhythm. She has not been anticoagulated in the past due to falls
Renal insufficiency has resolved. Continue to hold lisinopril.
Progress Note - Rn Advice
Subjective
Date of Service: July 12, 2024
No complaints.
Objective
Labs:
07/12/24 05:37
07/12/24 05:37
Labs
Hgb 10.3 g/dL (12.0-16.0) L 07/12/24 05:37
Hct 31.0 % (37.0-47.0) L 07/12/24 05:37
Plt Count 219 10^3/uL (130-400) 07/12/24 05:37
Sodium 141 mmol/L (135-145) 07/12/24 05:37
Potassium 4.2 mmol/L (3.5-5.1) 07/12/24 05:37
BUN 19 mg/dl (7-17) H 07/12/24 05:37
Creatinine 0.9 mg/dL (0.6-1.0) 07/12/24 05:37
Glucose 82 mg/dl (70-99) 07/12/24 05:37
Troponins
07/11/24 07/11/24
12:30 18:29
Troponin I Cancelled < 0.012
Vital Signs and I&O:
Vital Signs
Temp Pulse Resp BP Pulse Ox
97.3 F 64 14 157/59 100
07/12/24 15:35 07/12/24 15:35 07/12/24 15:35 07/12/24 15:35 07/12/24 15:35
Vital Signs
Temp Pulse Resp BP Pulse Ox
97.3 F 64 14 157/59 100
07/12/24 15:35 07/12/24 15:35 07/12/24 15:35 07/12/24 15:35 07/12/24 15:35
Intake & Output
07/10/24 07/11/24 07/12/24 07/13/24
06:59 06:59 06:59 06:59
Intake Total 240 / 240
Balance 240 / 240
Physical Exam
Physical Exam
General: Well developed, well nourished in NAD.
Neck: Supple, no JVD, HJR, carotids +2 B/L, no bruits bilaterally.
Heart: Non displaced PMI, irregular, 2/6 basal systolic murmur, no S3, S4, no rubs.
Lungs: Clear to auscultation bilaterally, no wheeze, rhonchi, rubs bilaterally,
normal expiratory phase.
Extremities: No clubbing, cyanosis or edema bilaterally.
Neuro: Grossly nonfocal, awake, alert and oriented x3.
[2024-07-12] MEDS: LOVENOX 40 MG SC (17:02)
[2024-07-12] MEDS: LIPITOR 40 MG PO (19:56)
[2024-07-13 03:34] VITALS: BP 146/70
[2024-07-13] MEDS: TYLENOL PO (03:58)
[2024-07-13 06:54] VITALS: BMI 19.2
[2024-07-13 07:37] VITALS: BP 97/64
[2024-07-13] MEDS: PROTONIX 40 MG PO (08:37)
[2024-07-13] MEDS: VITAMIN B-12 1000 MCG PO (08:37)
[2024-07-13] MEDS: MAG-TAB SR 84 MG PO (08:37)
[2024-07-13] MEDS: TYLENOL 650 MG PO ×2 (08:37→12:51)
[2024-07-13] MEDS: MIRALAX 17 GRAMS PO (08:37)
[2024-07-13] MEDS: VITAMIN D3 (cholecalciferol) 25 MCG PO (08:37)
[2024-07-13] MEDS: LOW STRENGTH ASPIRIN 81 MG PO (08:38)
--- NOTE | 2024-07-13 09:27 | W.PN.CARDCBS ---
Addendum entered and electronically signed by Yehuda Willis MD 07/13/24 10:04:
Patient seen and examined
Agree with PA-C note and assessment
Agree with PA-C plan
Reviewed telemetry which demonstrates sinus rhythm without pause
����Physical Exam
���������������������General:��no apparent distress, not acutely ill
���������������������������Neck:��supple. no meningeal signs. normal psoterior pharynx
������������������������
���������������������������Heart:��s1/s2 regular rate and rhythm, 2 out of 6 holosystolic murmur with a blunted S2. equal radial pulses.
��������������������������Lungs: ��no acute respiratory distress. clear bilaterally
����������������������Abdomen:�normal bowel sounds. not tender. no CVAT
��������������������������Neuro:��alert and oriented. no focal neurological deficits
������������������������������Skin: ��no rash
�����������������������Psychiatric:�well kept. interactive and cooperative
�����������������������Extremities:��no edema. no calf tenderness. negative homans. good distal pulse
PCP: Dr. Cliff Jackson
Card: [facility], but upcoming appt with Dr. Rossi
Impression:
Admitted with recurrent syncope 07/11/24
h/o syncope, 4 admissions to [facility] since 03/2024
Moderate to sev , mean gradient 34 mmHg by echo 07/08/24
Paroxysmal Afib
Not chronically anticoagulated due to h/o falls
DM 2
HTN
h/o CVA
Echo 07/08/24: [facility] study, f/u study, normal LVEF, normal RV size, mod to sev mean gradient 34 mmHg
Echo 07/12/2024: EF 60%, MAC with trace MR, moderate to severe with peak/mean gradients 59/34 mmHg, MUMTAZ 0.8 cm�, mild to moderate AR
Plan:
-Presented with recurrent syncope. Has had multiple recent admissions at [facility] since 03/2024 with syncope
-Known moderate to severe , but also orthostatic this admission. Suspect symptoms mostly related to orthostasis but there is likely in a component related to her valve
-Management complicated by baseline hypertension, continue midodrine 2.5 mg 3 times daily as needed
-Lisinopril and Lopressor remain on hold. Continue to follow BPs at home. I am not sure she will be able to tolerate these medications
-Rhythm Star monitor placed 07/12. No arrhythmias noted on telemetry this admission-no indication for pacing
-She has known history of paroxysmal A-fib, but is not chronically anticoagulated due to history of falls and syncope.
-If syncope continues despite controlling BPs and ruling out arrhythmia, would consider for TAVR evaluation, but unclear if she would be a candidate and/or patient�family interest.
-Outpatient cardiology follow-up arranged
Original Note:
Today's Communication / Plan
-
Continue to hold lopressor, lisinopril
midodrine 2.5mg TID prn
Rhythm star in place
Follow up arranged.
Impression / Plan
-
PCP: Dr. Cliff Jackson
Card: [facility], but upcoming appt with Dr. Rossi
Impression:
Admitted with recurrent syncope 07/11/24
h/o syncope, 4 admissions to [facility] since 03/2024
Moderate to sev , mean gradient 34 mmHg by echo 07/08/24
Paroxysmal Afib
Not chronically anticoagulated due to h/o falls
DM 2
HTN
h/o CVA
Echo 07/08/24: [facility] study, f/u study, normal LVEF, normal RV size, mod to sev mean gradient 34 mmHg
Echo 07/12/2024: EF 60%, MAC with trace MR, moderate to severe with peak/mean gradients 59/34 mmHg, MUMTAZ 0.8 cm�, mild to moderate AR
Plan:
-Presented with recurrent syncope. Has had multiple recent admissions at [facility] since 03/2024 with syncope
-Known moderate to severe , but also orthostatic this admission. Suspect symptoms mostly related to orthostasis
-Management complicated by baseline hypertension, continue midodrine 2.5 mg 3 times daily as needed
-Lisinopril and Lopressor remain on hold. Continue to follow BPs at home
-Rhythm Star monitor placed 07/12. No arrhythmias noted on telemetry this admission
-She has known history of paroxysmal A-fib, but is not chronically anticoagulated due to history of falls and syncope.
-If syncope continues despite controlling BPs and ruling out arrhythmia, would consider for TAVR evaluation, but unclear if she would be a candidate.
-Outpatient cardiology follow-up arranged
Progress Note - [facility]
Subjective
Date of Service: July 13, 2024
Still feeling somewhat tired.
Objective
Labs:
07/12/24 05:37
07/12/24 05:37
Labs
Hgb 10.3 g/dL (12.0-16.0) L 07/12/24 05:37
Hct 31.0 % (37.0-47.0) L 07/12/24 05:37
Plt Count 219 10^3/uL (130-400) 07/12/24 05:37
Sodium 141 mmol/L (135-145) 07/12/24 05:37
Potassium 4.2 mmol/L (3.5-5.1) 07/12/24 05:37
BUN 19 mg/dl (7-17) H 07/12/24 05:37
Creatinine 0.9 mg/dL (0.6-1.0) 07/12/24 05:37
Glucose 82 mg/dl (70-99) 07/12/24 05:37
Troponins
07/11/24 07/11/24
12:30 18:29
Troponin I Cancelled < 0.012
Vital Signs and I&O:
Vital Signs
Temp Pulse Resp BP Pulse Ox
97.3 F 72 17 97/64 100
07/13/24 07:37 07/13/24 07:37 07/13/24 07:37 07/13/24 07:37 07/13/24 07:37
Vital Signs
Temp Pulse Resp BP Pulse Ox
97.3 F 72 17 97/64 100
07/13/24 07:37 07/13/24 07:37 07/13/24 07:37 07/13/24 07:37 07/13/24 07:37
Intake & Output
07/11/24 07/12/24 07/13/24 07/14/24
06:59 06:59 06:59 06:59
Intake Total 240 / 240 420 / 420
Balance 240 / 240 420 / 420
Physical Exam
Physical Exam
GEN: No distress, awake, alert, lying in bed
HEENT: supple, anicteric, mmm
LUNGS: CTA b/l, no wheezes/rales
CV: reg, S1/S2, 26 syst murmur
EXT: No clubbing, cyanosis, or edema
NEURO: Gross non-focal
SKIN: warm, dry, no rash
[2024-07-13 11:06] VITALS: BP 113/59; BP 126/48; BP 95/47; PULSE 86; PULSE 88; PULSE 99
[2024-07-13 11:07] VITALS: BP 113/59
--- NOTE | 2024-07-13 13:28 | W.PN.HOSP.TC ---
Today's Communication/Plan
-
ok for d/c
Assessment / Plan
Assessment / Plan
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 Second 1 reported by the son patient was calling out to him and slid down the door frame patient did fall to the ground and had clenched up and briefly lost
consciousness she was confused for a minute afterwards
07/12/2024-echo normal LV size, EF 60%. Diastolic function indeterminate. Thickened mitral valve. Trace MR. Calcified arctic valve moderate to severe . Peak gradient 59 x 34 mmHg and valve area 0.8 cm�. Mild to moderate AI
EEG-07/11/2024-mild encephalopathy no epileptiform activity
# Syncope witnessed and 1 unwitnessed
Multiple syncopal events in the past
Workup at [facility] and was discharged 07/10/2024. Looks like was admitted on 07/07/2024 and discharged on 07/10/2024 blood pressure was 222/88 on admission associated with headache and lethargy
Neurology evaluation was done no CVA
EEG without any seizures
Orthostatic hypotension in the ER but none now.
Possibly secondary to dehydration
Trop Neg
Possibly these are related to aortic stenosis. Cardiology consulted and evaluated the patient
Not sure if pt will be a candidate for TAVR given Dementia
should wear compression stockings as well
# Leukocytosis-likely stress reaction. Urinalysis unremarkable. Chest x-ray unremarkable
# Acute kidney injury. Creatinine on 07/08/2024 was 0.80- 500 ml IV fluids were given and creat normalized.
# Recent stroke-seen by Dr. Lorena Zepeda neurology at [facility]
Patient was admitted with left-sided weakness at that time to [facility] and also right facial droop?
07/08/2024 -MRI of the brain mild to moderate atrophy with at least mild small vessel disease. There is a probable small old left thalamic lacunar infarct. There is suggestion of tiny recent infarcts involving the right thalamus and mckenzie
radiator. No convincing left-sided acute infarct to explain right facial droop. Questionable diffusion abnormality in the midbrain to the right of the middle.
CT angiogram of head and neck atherosclerotic disease of the right common carotid and internal carotid arteries without significant stenosis. Atherosclerotic disease of the left common carotid without significant stenosis less than 50%. Bilateral
ELIEZER, MCA, MANAGER OF INVESTIGATIONS normal in appearance. Age-related atrophy.
Neurology at [facility] did not feel the changes were secondary to stroke.Recommended to continue aspirin and statin
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
Echo normal LV size. Normal RV size. Severe aortic stenosis transaortic valve gradient 34 mmHg LVOT 1.8 cm. No AI.
DCA consulted
# Hypertension-on metoprolol, lisinopril as outpatient. Both stopped as she was orthostatic in the ER.
# Hyperlipidemia-continue statin
# Type 2 diabetes-diet controlled. Not on any medicines. Hemoglobin A1c 5.7 in 07/08/2024
# Paroxysmal atrial fibrillation-metoprolol stopped. Not on anticoagulation secondary to falls
# Vitamin B12 deficiency
# GERD-continue PPI
# Dementia
# DVT Prophylaxis- Lovenox
# CODE Status-DNR per D/W Son by admitting MD
Anticipated Discharge: Today
Subjective/Interval History
-
Date of Service: July 13, 2024
pt c/o to nursing that she is still a bit lightheaded--tells me she feels 'foggy'
Objective Data
-
Vital Signs:
max temp for 24 hours
07/13/24
03:34
Temp 98.1 F
Vital Signs
Temp Pulse Resp BP Pulse Ox
97.3 F 88 17 113/59 100
07/13/24 11:07 07/13/24 11:07 07/13/24 11:07 07/13/24 11:07 07/13/24 11:07
I&O
07/12/24 07/13/24 07/14/24
06:59 06:59 06:59
Intake Total 240 / 240 420 / 420
Balance 240 / 240 420 / 420
Review of Systems
-
All other systems: Reviewed and negative
Neuro: Reports Other ('foggy')
Physical Exam
-
General: Appears Chronically Ill
HEENT: Normocephalic and Atraumatic; Negative Oxygen
Respiratory: Clear to Auscultation; Negative Wheezes or Rhonchi
Cardiac: Regular Rhythm, S1/S2 and Murmur
GI: Soft, Nontender, Nondistended and Normal Bowel Sounds
Musculoskeletal: No Clubbing, No Cyanosis and No Edema
Skin: Warm
Neuro: Awake
Psych: Calm
[2024-07-13 15:06] VITALS: BP 127/54
[2024-07-13 15:38] VITALS: BP 126/56
--- NOTE | 2024-07-13 16:33 | CM ---
MARY met with Mary Bowens at bedside. She was very upset because she had been calling out and cursing; she was very embarrassed. Support provided.
CM called her son to discuss discharge plans; son advised that pt is known to [facility]. Referral sent for resumption of services.
[facility] Letter reviewed with son; signed and placed on chart.
Plan: Discharge to home with resumption of [facility].
== END 2024-07-13 15:57 | disposition home health service (06) ==
LOC: 3 WEST ACU 13:05
PROVIDERS: Emergency Medicine; Physician Assistant Medical; ADMITTING PHYSICIAN Hospitalist; ATTENDING PHYSICIAN Internal Medicine; CONSULT PHYSICIAN Internal Medicine Cardiovascular Disease; CONSULT PHYSICIAN Psychiatry & Neurology Neurology; EMERGENCY PHYSICIAN Emergency Medicine; FAMILY PHYSICIAN Family Medicine
DX: I35.0 Nonrheumatic aortic (valve) stenosis (principal); R55 Syncope and collapse; Z87.891 Personal history of nicotine dependence; N17.9 Acute kidney failure, unspecified; I10 Essential (primary) hypertension; Z79.899 Other long term (current) drug therapy; E78.5 Hyperlipidemia, unspecified; E11.9 Type 2 diabetes mellitus without complications; E53.8 Deficiency of other specified B group vitamins; K21.9 Gastro-esophageal reflux disease without esophagitis; I48.0 Paroxysmal atrial fibrillation; Z86.73 Personal history of transient ischemic attack (TIA), and cerebral infarction without residual deficits; Z66 Do not resuscitate; E86.0 Dehydration
CPT/HCPCS: 70450; 71046; 80048; 80053; 81003; 82550; 82607; 83735; 84443; 84484; 85025; 93005; 93306; 95816; 96360; 97163; 97166; 99285; G0378

== ENCOUNTER 2024-07-15 18:06 | Emergency (ER) | payer MEDICARE, SELFPAY ==
[2024-07-15] VITALS (7 sets, daily range): BP systolic 133–195; BP diastolic 59–66; BMI 20.7
[2024-07-15 18:27] LABS: % Basophils 0.3 % (0-2); % Eosinophils 1.5 % (0-6); % Immature Granulocytes 0.3 % (0-0.5); % Monocytes 4.4 % (1.7-9.3); % Neutrophils 81.5 % (42.2-75.2); Absolute Eosinophils 0.2 10^3/uL (0-0.7); Absolute Lymphocytes 1.3 10^3/uL (1.2-3.4); Absolute Monocytes 0.5 10^3/uL (0.1-0.6); Hematocrit 34.4 % (37.0-47.0); Hemoglobin 11.5 g/dL (12.0-16.0); Mean Corp Hgb Conc. 33.4 g/dL (33.0-37.0); Mean Corpuscular Hgb 30.2 pg (27.0-31.0); Mean Corpuscular Volume 90.3 fL (81.0-99.0); Mean Platelet Volume 10.4 fL (7.4-10.4); Nucleated Red Blood Cells % 0 %; Platelet Count 255 10^3/uL (130-400); Red Blood Cell Count 3.81 10^6/uL (4.20-5.40); Red Cell Dist. Width 13.6 % (11.5-14.5)
--- NOTE | 2024-07-15 18:43 | ED.GENMED ---
History of Present Illness
<DO Loraine Coburn Last Filed: 07/17/24 00:10>
General
Chief Complaint: Blood Pressure Problem
Source: patient
Time Seen by Provider: 07/15/24 18:20
History of Present Illness
History of Present Illness:
84-year-old female presents to the emergency room complaining of nausea, vomiting, right temporal headache. Patient was recently discharged from the hospital after an admission for syncopal episodes. She was taken off blood pressure medicine
because she was found to have fairly significant aortic stenosis. The patient also was prone to orthostatic hypotension. Patient has had several hospitalizations recently. Currently the patient is awake, no longer having nausea but does complain
of a mild headache. Patient's son states her blood pressure was over 200 at home. It is 195 systolic here.
Past History
<DO Loraine Coburn Filed: 07/17/24 00:10>
Past History
ED Past Medical History: Arrthythmia, GERD, NIDDM and Other (Alzheimer's dementia)
ED Past Surgical History: Appendectomy
Social History
Tobacco: Non-smoker
Alcohol: None
Drug: None
Personal:
Living: with family
Phy Exam
<DO Loraine Coburn Last Filed: 07/17/24 00:10>
Physical Exam
Physical Exam:
General: Awake, Alert, Oriented X1, 2 person. No acute distress.
Vitals: Hypertensive
Head: Atraumatic
Eyes: Pupils equal, EOMI
Throat: Airway intact, no exudates
Neck: Trachea midline
Lungs: Clear and equal b/l
Heart: Regular rate, no murmurs
Abd: Soft, Nontender, No pulsatile mass
Neuro: Nonfocal
Skin: Warm, dry, no rash
Extremities: pulses equal b/l, no edema
Course
<Cliff Tijerina, DO - Last Filed: 07/17/24 00:10>
Orders/Labs/Results
Orders:
Orders
07/15/24 18:15
Basic Metabolic Panel Urgent
Complete Blood Count/With Diff Urgent
Troponin I Urgent
07/15/24 18:40
CT Head W/o Iv Contrast Urgent
Comment:
Reason For Exam: headache, nausea, vomting, htn
07/15/24 18:45
Electrocardiogram (*1) Urgent
Reason for Study: Fatigue / Weakness
EKG- Treatment ONCE
Abnormal Lab Results
07/15/24
18:15
WBC 11.0 H 10^3/uL
(4.8-10.8)
RBC 3.81 L 10^6/uL
(4.20-5.40)
Hgb 11.5 L g/dL
(12.0-16.0)
Hct 34.4 L %
(37.0-47.0)
Absolute Neuts (auto) 9.0 H 10^3/uL
(1.4-6.5)
Neutrophils % 81.5 H %
(42.2-75.2)
Lymphocytes % 12.0 L %
(20.5-51.1)
Chloride 110 H mmol/L
(98-107)
Carbon Dioxide 20 L mmol/L
(22-30)
BUN 22 H mg/dl
(7-17)
07/15/24 18:15
07/15/24 18:15
Vital Signs
Initial and Last Documented VS:
Initial Vital Signs
BP
195/66
07/15/24 18:11
Last Documented Vital Signs
Pulse Resp BP Pulse Ox
72 18 133/59 99
07/15/24 23:15 07/15/24 18:39 04/21/25 23:00 07/15/24 23:15
<Volodymyr Salinas, DO - Last Filed: 07/15/24 22:40>
Orders/Labs/Results
Orders:
Orders
07/15/24 18:15
Basic Metabolic Panel Urgent
Complete Blood Count/With Diff Urgent
Troponin I Urgent
07/15/24 18:40
CT Head W/o Iv Contrast Urgent
Comment:
Reason For Exam: headache, nausea, vomting, htn
07/15/24 18:45
Electrocardiogram (*1) Urgent
Reason for Study: Fatigue / Weakness
EKG- Treatment ONCE
Abnormal Lab Results
07/15/24
18:15
WBC 11.0 H 10^3/uL
(4.8-10.8)
RBC 3.81 L 10^6/uL
(4.20-5.40)
Hgb 11.5 L g/dL
(12.0-16.0)
Hct 34.4 L %
(37.0-47.0)
Absolute Neuts (auto) 9.0 H 10^3/uL
(1.4-6.5)
Neutrophils % 81.5 H %
(42.2-75.2)
Lymphocytes % 12.0 L %
(20.5-51.1)
Chloride 110 H mmol/L
(98-107)
Carbon Dioxide 20 L mmol/L
(22-30)
BUN 22 H mg/dl
(7-17)
07/15/24 18:15
07/15/24 18:15
Vital Signs
Initial and Last Documented VS:
Initial Vital Signs
BP
195/66
07/15/24 18:11
Last Documented Vital Signs
Pulse Resp BP Pulse Ox
72 18 133/59 99
07/15/24 23:15 07/15/24 18:39 07/15/24 23:00 07/15/24 23:15
<Cliff Tijerina, DO - Last Filed: 07/17/24 00:10>
MDM/Problems Addressed
Differential Diagnosis Includes:
Uncontrolled hypertension, hypertensive emergency, intracranial hemorrhage
MDM/Problems Addressed:
Patient arrived complaining of headache and elevated blood pressure. Her neurologic exam is unremarkable. Workup here showed no evidence of endorgan damage. Her blood pressure improved without intervention. Patient recently had blood pressure
medication discontinued after hospitalization for dizziness and syncope. She was discovered to have significant aortic stenosis. However her blood pressure is now poorly controlled. Discussed indications I did discuss the patient's presentation
with Dr. Zepeda who is on-call for her cardiology group. He recommends starting a low-dose lisinopril. Patient stable for discharge home on this dose of lisinopril and will follow-up as an outpatient.
<Cliff Tijerina, DO - Last Filed: 07/17/24 00:10>
*Pulse Oximetry
Patient hypoxic: no
*EKG
Interpreted by ED Provider?: Yes
Heart Rate: 79
Rate: normal
Rhythm: sinus
QRS Pattern: other (ant q waves)
Ischemia: no ischemia
*Computer Hardware Designer Interpretation
Rate: normal
Interpretation: normal
Rhythm: sinus
<Volodymyr Salinas, DO - Last Filed: 07/15/24 22:40>
*Radiology
Radiology exam reviewed: radiology read reviewed (CT head no acute findings)
*Critical Care Note
Total Time (30-74mins, 75-104mins- exclusive of procedures): Not Applicable
<Volodymyr Salinas, DO - Last Filed: 07/15/24 22:40>
Update Note
Update Note:
Received patient in signout. Pending head CT. Blood pressure stabilized, headache improved. Normal head CT. No signs of endorgan damage. Discharge patient to follow-up with primary care. Return precautions given.
ED Attending Note
julia;Cliff Tijerina DO - Last Filed: 07/17/24 00:10>
-
Portions of this chart may have been created with voice recognition software.� Occasional wrong word or��sound alike� substitutions may have occurred due to the inherent limitations of voice recognition software.
Discharge Plan
Departure
Patient Disposition: Home (Routine Discharge)
Date of Disposition: 07/15/24
Time of Disposition: 22:40
Patient with high blood pressure during this ER visit?: Yes
Condition: Good
Discharge Problem:
Uncontrolled hypertension
Instructions: Headaches in adults, BLOOD PRESSURE
Prescriptions:
New
lisinopril 5 mg tablet
5 mg PO DAILY Qty: 30 0RF
No Action
atorvastatin 40 mg Tablet
40 mg PO HS
cyanocobalamin (vitamin B-12) 1,000 mcg Tablet
1,000 mcg PO DAILY
benzonatate 100 mg Capsule
100 mg PO TIDPRN PRN (Reason: cough )
omeprazole 20 mg Capsule,Delayed Release(Dr/Ec)
20 mg PO DAILY
aspirin 81 mg Tablet,Chewable
81 mg PO DAILY
cholecalciferol (vitamin D3) 25 mcg (1,000 unit) Capsule
25 mcg PO DAILY
diclofenac sodium 1 % Gel
0 g TOPICAL QIDPRN PRN (Reason: joint pain )
magnesium oxide 400 mg magnesium Tablet
400 mg PO BID
polyethylene glycol 3350 17 gram Powder In Packet
17 g PO DAILY Qty: 0 0RF
midodrine 2.5 mg Tablet
2.5 mg PO TIDPRN PRN (Reason: SBP<120) Qty: 0 0RF
Referrals:
Cliff Jackson DO [Primary Care Provider] - Call in 1-3 days for appt
Activity Restrictions/Additional Instructions:
I discussed your blood pressure with cardiology. They recommend restarting lisinopril at 5mg a day.
Interventions
Interventions:
*Risk Screen - Suicide Last Done: 07/15/24 18:08
*General Assessment Last Done: 07/15/24 18:08
*Neglect/Abuse Screening Last Done: 07/15/24 18:08
*ED- Fall Risk Assessment Last Done: 07/15/24 18:08
*ED COVID-19 Vaccine History Last Done: 07/15/24 18:08
*Nursing Disposition Last Done: 07/15/24 23:41
ED- Cardiac Assessment Last Done: 07/15/24 18:08
ED- Neurological Assessment Last Done: 07/15/24 18:08
ED- Pulmonary Assessment Last Done: 07/15/24 18:08
Discharge Date and Time
Discharge Date/Time: 07/15/24 23:42
Print Language: KOREAN
[2024-07-15 18:47] LABS: Blood Urea Nitrogen 22 mg/dl (7-17); Calcium 8.5 mg/dl (8.4-10.2); Carbon Dioxide 20 mmol/L (22-30); Chloride 110 mmol/L (98-107); Estimated Creatinine Clearance 54 ml/min; Glucose 89 mg/dl (70-99); Sodium 139 mmol/L (135-145); eGFR > 60.00
[2024-07-15 18:54] LABS: Troponin I < 0.012 ng/ml
--- NOTE | 2024-07-16 16:05 | VNURNOTE ---
Late entry: This author rec'ed info that patient was denied by [facility]. [facility] and [facility]. [facility] liaison called patient's son Taqueria to explain services, frequency, homebound status. Son verbalized
understanding and was appreciative. He is aware that [facility] will reach out to him within 1-2 days to schedule visits.
== END 2024-07-15 23:42 | disposition home or self-care (01) ==
LOC: EMR 18:06
PROVIDERS: EMERGENCY PHYSICIAN Emergency Medicine; PRIMARYCARE PHYSICIAN Family Medicine
DX: I10 Essential (primary) hypertension (principal); R11.2 Nausea with vomiting, unspecified; R51.9 Headache, unspecified; E11.9 Type 2 diabetes mellitus without complications; F02.80 Dementia in other diseases classified elsewhere, unspecified severity, without behavioral disturbance, psychotic disturbance, mood disturbance, and anxiety; G30.9 Alzheimer's disease, unspecified; I35.0 Nonrheumatic aortic (valve) stenosis; Z90.49 Acquired absence of other specified parts of digestive tract
CPT/HCPCS: 99284; 70450; 80048; 84484; 85025; 93005

== ENCOUNTER 2024-08-18 18:54 | Emergency (ER) | payer MEDICARE, SELFPAY ==
[2024-08-18] VITALS (12 sets, daily range): BP systolic 168–221; BP diastolic 55–98
[2024-08-18 19:21] LABS: % Basophils 0.1 % (0-2); % Immature Granulocytes 0.5 % (0-0.5); % Lymphocytes 9.4 % (20.5-51.1); % Monocytes 6.5 % (1.7-9.3); % Neutrophils 83.5 % (42.2-75.2); Absolute Immature Granulocytes 0.1 10^3/uL (0-0.05); Absolute Lymphocytes 1.1 10^3/uL (1.2-3.4); Absolute Monocytes 0.8 10^3/uL (0.1-0.6); Absolute Neutrophils 9.7 10^3/uL (1.4-6.5); Hematocrit 35.1 % (37.0-47.0); Hemoglobin 11.9 g/dL (12.0-16.0); Mean Corp Hgb Conc. 33.9 g/dL (33.0-37.0); Mean Corpuscular Hgb 29.8 pg (27.0-31.0); Mean Corpuscular Volume 87.8 fL (81.0-99.0); Mean Platelet Volume 10.2 fL (7.4-10.4); Nucleated Red Blood Cells % 0 %; Platelet Count 365 10^3/uL (130-400); Red Cell Dist. Width 13.1 % (11.5-14.5); White Blood Cell Count 11.7 10^3/uL (4.8-10.8)
[2024-08-18 19:38] LABS: ALT (SGPT) 48 U/L (0-35); AST (SGOT) 39 U/L (14-36); Albumin 4.2 g/dl (3.5-5.0); Alkaline Phosphatase 125 U/L (38-126); Blood Urea Nitrogen 28 mg/dl (7-17); Calcium 9.4 mg/dl (8.4-10.2); Carbon Dioxide 25 mmol/L (22-30); Chloride 104 mmol/L (98-107); Estimated Creatinine Clearance 46 ml/min; Glucose 204 mg/dl (70-99); Potassium 4.3 mmol/L (3.5-5.1); Sodium 135 mmol/L (135-145); Total Bilirubin 0.5 mg/dl (0.2-1.3); Total Protein 7.2 g/dl (6.3-8.2); eGFR > 60.00
[2024-08-18] MEDS: TYLENOL 1000 MG PO (19:38)
--- NOTE | 2024-08-18 21:45 | ED.GENMED ---
History of Present Illness
General
Chief Complaint: Blood Pressure Problem
Source: patient and family
Time Seen by Provider: 08/18/24 19:01
History of Present Illness
History of Present Illness:
84-year-old female with a history of aortic stenosis, hypertension who presents after patient's son checked her blood pressure is noted to be 221 systolic. He states it also went up to 232 systolic. Patient reported a little bit of headache. On
my evaluation states she still has a very mild headache but otherwise no complaints. Denies chest pain or shortness of breath. No palpitations. Son does state that she has had issues with passing out and low blood pressure and he dropped her
lisinopril from 10 mg to 5 mg. Also advised the patient to take it at night.
Past History
Past History
ED Past Medical History: Arrthythmia, GERD, NIDDM and Other (Alzheimer's dementia)
ED Past Surgical History: Appendectomy
Social History
Tobacco: Non-smoker
Alcohol: None
Drug: None
Personal:
Living: with family
Phy Exam
Physical Exam
Physical Exam:
CONSTITUTIONAL Patient alert and oriented to person, place. Well-appearing. Vital signs reviewed.
HEAD atraumatic, normocephalic.
EYES eyelids normal to inspection, Extraocular muscles intact, Conjunctiva normal, Sclera normal.
NECK normal range of motion, Trachea midline, no jugular venous distention.
RESPIRATORY CHEST No respiratory distress noted, Chest expansion equal, Bilateral breath sounds clear.
CARDIOVASCULAR regular rate and rhythm, systolic ejection murmur noted
BACK normal inspection, no obvious deformities
UPPER EXTREMITY range of motion normal, Motor strength normal, no cyanosis, no edema.
LOWER EXTREMITY range of motion normal, Motor strength normal, no cyanosis, no edema.
NEURO Speech normal, No focal motor deficits, Cranial Nerves intact to screening exam.
SKIN skin warm, dry, and normal in color.
Course
Orders/Labs/Results
Orders:
Orders
08/18/24 19:04
EKG [Electrocardiogram (*1)] Urgent
Reason for Study: Hypertension, Benign
EKG- Treatment ONCE
08/18/24 19:17
Complete Blood Count/With Diff Urgent
Comprehensive Metabolic Panel Urgent
08/18/24 19:36
Acetaminophen [Tylenol] 1,000 mg .ROUTE .STK-MED ONE
08/18/24 19:38
Acetaminophen [Tylenol] 1,000 mg PO NOW STA
08/18/24 21:54
HydrALAZINE [Apresoline] 5 mg IV NOW STA
Lisinopril [Zestril] 5 mg PO NOW STA
Abnormal Lab Results
08/18/24
19:17
WBC 11.7 H 10^3/uL
(4.8-10.8)
RBC 4.00 L 10^6/uL
(4.20-5.40)
Hgb 11.9 L g/dL
(12.0-16.0)
Hct 35.1 L %
(37.0-47.0)
Abs Immat Gran (auto) 0.1 H 10^3/uL
(0-0.05)
Absolute Neuts (auto) 9.7 H 10^3/uL
(1.4-6.5)
Absolute Lymphs (auto) 1.1 L 10^3/uL
(1.2-3.4)
Absolute Monos (auto) 0.8 H 10^3/uL
(0.1-0.6)
Neutrophils % 83.5 H %
(42.2-75.2)
Lymphocytes % 9.4 L %
(20.5-51.1)
BUN 28 H mg/dl
(7-17)
Glucose 204 H mg/dl
(70-99)
AST 39 H U/L
(14-36)
ALT 48 H U/L
(0-35)
08/18/24 19:17
08/18/24 19:17
Vital Signs
Initial and Last Documented VS:
Initial Vital Signs
Temp Pulse Resp BP Pulse Ox
98 F 87 18 168/98 98
08/18/24 18:56 08/18/24 18:56 08/18/24 18:56 08/18/24 18:56 08/18/24 18:56
Last Documented Vital Signs
Temp Pulse Resp BP Pulse Ox
98 F 63 13 196/55 98
08/18/24 18:56 08/18/24 21:40 08/18/24 21:40 08/18/24 21:40 08/18/24 18:56
MDM/Problems Addressed
Differential Diagnosis Includes:
Renal artery stenosis, CVA, acute renal failure, MD
MDM/Problems Addressed:
Uncontrolled hypertension
*Pulse Oximetry
Patient hypoxic: no
*EKG
Interpreted by ED Provider?: Yes
Interpretation: normal
Rate: normal
Rhythm: sinus
[place]: normal axis
Interval: normal interval
QRS Pattern: normal QRS
Ischemia: no ischemia
*Box Toe Cementer Interpretation
Rate: normal
Interpretation: normal
Rhythm: sinus
*Critical Care Note
Total Time (30-74mins, 75-104mins- exclusive of procedures): Not Applicable
Data Reviewed
Review of Other/Old Records Reveals: Discharge Summary (Discharge summary from June 2024 reviewed. Patient was admitted for syncope)
Source: patient and family
Further Testing Considered But Not Given:
Considered head CT but patient is at baseline.
Patient Management
Escalation/DeEscalation of care consider admission/obs:
Blood pressure improved without intervention. Still at 190 systolic. Will give small dose of hydralazine and 5 mg of lisinopril as she used to be on 10 mg lisinopril. I will refer her to her PCP for follow-up.
Update Note
Update Note:
Further discussion with patient's son. At this point given her history of blood pressure dropping, hold off on further treatment as her blood pressure is coming down without intervention. He feels comfortable with that we will follow-up with the
PCP
ED Attending Note
-
Portions of this chart may have been created with voice recognition software.� Occasional wrong word or��sound alike� substitutions may have occurred due to the inherent limitations of voice recognition software.
Discharge Plan
Departure
Patient Disposition: Home (Routine Discharge)
Date of Disposition: 08/18/24
Time of Disposition: 22:10
Patient with high blood pressure during this ER visit?: Yes
Discharge Problem:
Uncontrolled hypertension
Instructions: High Blood Pressure (DC), BLOOD PRESSURE
Prescriptions:
No Action
atorvastatin 40 mg Tablet
40 mg PO HS
cyanocobalamin (vitamin B-12) 1,000 mcg Tablet
1,000 mcg PO DAILY
benzonatate 100 mg Capsule
100 mg PO TIDPRN PRN (Reason: cough )
omeprazole 20 mg Capsule,Delayed Release(Dr/Ec)
20 mg PO DAILY
aspirin 81 mg Tablet,Chewable
81 mg PO DAILY
cholecalciferol (vitamin D3) 25 mcg (1,000 unit) Capsule
25 mcg PO DAILY
diclofenac sodium 1 % Gel
0 g TOPICAL QIDPRN PRN (Reason: joint pain )
magnesium oxide 400 mg magnesium Tablet
400 mg PO BID
polyethylene glycol 3350 17 gram Powder In Packet
17 g PO DAILY Qty: 0 0RF
midodrine 2.5 mg Tablet
2.5 mg PO TIDPRN PRN (Reason: SBP<120) Qty: 0 0RF
lisinopril 5 mg tablet
5 mg PO DAILY Qty: 30 0RF
Referrals:
Cliff Jackson, DO [Family Provider] -
Activity Restrictions/Additional Instructions:
Please see your doctor in 48 hours for follow-up, reevaluation and reassessment of your blood pressure management. Return immediately for passing out episode, chest pain, shortness of breath, change in mentation or any other concerns.
Interventions
Interventions:
*Risk Screen - Suicide Last Done: 08/18/24 18:58
*General Assessment Last Done: 08/18/24 18:58
*Neglect/Abuse Screening Last Done: 08/18/24 19:13
*ED- Fall Risk Assessment Last Done: 08/18/24 19:13
*ED COVID-19 Vaccine History Last Done: 08/18/24 18:58
ED- Cardiac Assessment Last Done: 08/18/24 19:18
ED- Neurological Assessment Last Done: 08/18/24 19:18
ED- Pulmonary Assessment Last Done: 08/18/24 19:18
Discharge Date and Time
Print Language: [place]
== END 2024-08-18 22:31 | disposition home or self-care (01) ==
LOC: EMR 18:54
PROVIDERS: EMERGENCY PHYSICIAN Emergency Medicine; FAMILY PHYSICIAN Family Medicine
DX: I10 Essential (primary) hypertension (principal); K21.9 Gastro-esophageal reflux disease without esophagitis; E11.9 Type 2 diabetes mellitus without complications; F02.80 Dementia in other diseases classified elsewhere, unspecified severity, without behavioral disturbance, psychotic disturbance, mood disturbance, and anxiety; G30.9 Alzheimer's disease, unspecified; I25.2 Old myocardial infarction; I35.0 Nonrheumatic aortic (valve) stenosis; Z90.49 Acquired absence of other specified parts of digestive tract
CPT/HCPCS: 99283; 80053; 85025; 93005